=== PATIENT | male | born 1985 | race Caucasian/White ===

== ENCOUNTER 2016-08-02 01:09 | Emergency (ER) | payer MEDICARE, MEDICAID ==
[2016-08-02 02:06] LABS: Hematocrit 43 % (42-52); Hemoglobin 14.3 g/dl (14.0-18.0); Mean Corpuscular HGB Conc 34 g/dl (31-36); Mean Corpuscular Hemoglobin 33 pg (27-31); Mean Corpuscular Volume 97 fL (80-94); Mean Platelet Volume 10 um3 (7.4-10.4); Red Blood Count 4.38 10^6/ul (4.0-5.4); Red Cell Distribution Width 14 % (10.5-15); White Blood Count 7.6 10^3/ul (3.5-10.8)
--- NOTE | 2016-08-02 02:07 | ED ---
Jose Madrigal Michael, scribed for Adal Diaz MD on 08/02/16 at 0153 . Neurological HPI - HPI Summary HPI Summary: 31 y/o male comes to the ED presenting with 2 sz yesterday. The pt reports that he has only had one previous sz before the current episode. He also c/o SHERMAN. 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 The pt has asked for a neurology referral. - History of Current Complaint Chief Complaint: EDGeneral Stated Complaint: SEIZURE Time Seen by Provider: 08/02/16 01:40 Hx Obtained From: Patient, Medical Records Onset/Duration: Sudden Onset, Started days ago Timing: Intermittent Episodes Lasting: Onset Severity: Moderate Current Severity: None Seizure Severity: Moderate Number of Seizures: 2 Pain Intensity: 6 Pain Scale Used: 0-10 Numeric Alleviating: Spontanious Resolution Associated Signs and Symptoms: Positive: Headache, Seizure - Allergy/Home Medications Allergies/Adverse Reactions: Allergies Allergy/AdvReac Type Severity Reaction Status Date / Time Haloperidol [From Haldol] Allergy Severe BODY Verified 08/02/16 01:32 SEIZURES Nickel Allergy Severe Rash Verified 08/02/16 01:32 Sulfa Drugs Allergy Severe SEVERE Verified 08/02/16 01:32 VOMITING, BREATHING PROBLEMS PMH/Surg Hx/FS Hx/Imm Hx Endocrine/Hematology History: Denies: Hx Diabetes, Hx Thyroid Disease Cardiovascular History: Denies: Hx Congestive Heart Failure, Hx Hypertension, Hx Pacemaker/ICD Respiratory History: Denies: Hx Asthma, Hx Chronic Obstructive Pulmonary Disease (COPD) GI History: Reports: Other GI Disorders - present diarrhea with bloody stools Denies: Hx Ulcer Sensory History: Denies: Hx Cataracts, Hx Contacts or Glasses, Hx Eye Injury, Hx Eye Prosthesis, Hx Glaucoma, Hx Legally Blind, Hx Macular Degeneration, Hx Vision Problem, Hx Deafness, Hx Hearing Aid, Hx Hearing Problem, Other Sensory Impairments Opthamlomology History: Denies: Hx Cataracts, Hx Contacts or Glasses, Hx Eye Injury, Hx Eye Prosthesis, Hx Glaucoma, Hx Legally Blind, Hx Macular Degeneration, Hx Vision Problem, Other Sensory Impairments Psychiatric History: Reports: Hx Post Traumatic Stress Disorder, Hx of Violent Episodes Against Others - PER PT WHEN HE DOESNT TAKE HIS MEDS Denies: Hx Anxiety, Hx Attention Deficit Hyperactivity Disorder, Hx Eating Disorder, Hx Depression, Hx Panic Disorder, Hx Inpatient Treatment, Hx Community Mental Health Tx, Hx Schizophrenia, Hx Bipolar Disorder, Hx Suicide Attempt, Hx Substance Abuse, Other Psychiatric Issues/Disorders - Surgical History Surgery Procedure, Year, and Place: HERNIA REPAIR, Hx Anesthesia Reactions: No Infectious Disease History: No Infectious Disease History: Denies: Hx Clostridium Difficile, Hx Hepatitis, Hx Human Immunodeficiency Virus (HIV), Hx of Known/Suspected MRSA, Hx Shingles, Hx Tuberculosis, History Other Infectious Disease, Traveled Outside the [place] in Last 30 Days - Family History Known Family History: Negative: Blood Disorder - Social History Occupation: Unemployed Lives: Alone Alcohol Use: Daily Substance Use Type: Reports: None, Prescribed Substance Use Comment - Amount & Last Used: adderal and valium Smoking Status (MU): Heavy Every Day Tobacco Smoker Type: Smokeless Tobacco Review of Systems Negative: Fever Neurological: Other - sz Positive: Headache All Other Systems Reviewed And Are Negative: Yes Physical Exam Triage Information Reviewed: Yes Vital Signs On Initial Exam: Initial Vitals Temp Pulse Resp BP Pulse Ox 98.8 F 105 16 123/83 99 08/02/16 01:20 08/02/16 01:20 08/02/16 01:20 08/02/16 01:20 08/02/16 01:20 Vital Signs Reviewed: Yes Appearance: Positive: Well-Appearing, No Pain Distress Skin: Positive: Warm Head/Face: Positive: Normal Head/Face Inspection Eyes: Positive: EOMI, KRISTIN ENT: Positive: Hearing grossly normal Neck: Positive: Supple Respiratory/Lung Sounds: Positive: Clear to Auscultation, Breath Sounds Present Cardiovascular: Positive: RRR Abdomen Description: Positive: Nontender, No Organomegaly, Soft Bowel Sounds: Positive: Present Musculoskeletal: Positive: Strength/ROM Intact Neurological: Positive: Sensory/Motor Intact, Alert, Oriented to Person Place, Time, Normal Gait Psychiatric: Positive: Anxious Diagnostics - Vital Signs Vital Signs Temp Pulse Resp BP Pulse Ox 08/02/16 01:20 98.8 F 105 16 123/83 99 - Laboratory Result Diagrams: 08/02/16 01:55 08/02/16 01:55 Lab Statement: Any lab studies that have been ordered have been reviewed, and results considered in the medical decision making process. Re-Evaluation - Re-Evaluation First Eval Comment: results d/wpt, advised pt to f/u with his neurologist Course/Dx - Diagnoses Provider Diagnoses: Seizure Discharge - Discharge Plan Condition: Stable Disposition: HOME Patient Education Materials: Recurrent Seizures in Adults (ED) Referrals: Lisandro Timmons MD [Medical Doctor] - Additional Instructions: You will follow up with Dr. Timmons (Neurology) within the next 2 days. Please return to the ED if your symptoms worsen. The documentation as recorded by the Jose andersen Michael accurately reflects the service I personally performed and the decisions made by , Adal Diaz MD.
[2016-08-02 02:21] LABS: Albumin 4.6 g/dL (3.2-5.2); Calcium 9.7 mg/dL (8.6-10.3); EGFR African American 113.6 (>60); EGFR Non-African American 88.3 (>60); Globulin 2.7 g/dL (2-4); Magnesium 2.4 mg/dL (1.9-2.7); Potassium 4.1 mmol/L (3.5-5.0); Total Bilirubin 1.4 mg/dL (0.2-1.0); Total Protein 7.3 g/dL (6.4-8.9)
[2016-08-02 02:58] VITALS: BP 127/83
== END 2016-08-02 02:57 | disposition home or self-care (01) ==
LOC: ED 01:09
DX: R56.9 Unspecified convulsions (principal); R51 Headache; F17.210 Nicotine dependence, cigarettes, uncomplicated
CPT/HCPCS: 36415; 80053; 83735; 85025; 99282

== ENCOUNTER 2016-09-01 14:37 | Emergency (ER) | payer MEDICARE, MEDICAID ==
[2016-09-01 15:03] VITALS: BP 119/69
--- NOTE | 2016-09-01 15:24 | UC ---
Seizure HPI - HPI Summary HPI Summary: PT WITH H/O TBI AND TONIC-CLONIC SZ THAT HAVE BEEN INCREASING IN FREQUENCY OVER THE PAST 2 MONTHS. IS BEING FOLLOWED BY NEUROLOGY AT [facility] AND HAS A F/U APPT THIS WEDNESDAY (IN 3 DAYS). THIS MORNING HAD A SEIZURE AROUND 7AM. NOT SURE HOW LONG IT LASTED. NO TONGUE BITING OR LOSS OF BOWEL OR BLADDER CONTROL. SAID THIS ONE FELT "DIFFERENT" THAN NORMAL IN THAT IT WAS PAINFUL. CALLED HIS NEUROLOGIST AND WAS TOLD TO GO TO ER BUT HE CAME HERE INSTEAD. CURRENTLY IS FEELING AT BASELINE. - History Of Current Complaint Chief Complaint: UCSzu Stated Complaint: SEIZURES Time Seen by Provider: 09/01/16 15:22 Hx Obtained From: Patient, Family/Medical Laboratory Scientist - MOM Onset/Duration: Sudden Onset, Resolved Severity Of Seizure: Self-Limited Location Of Seizure: All Extremities Character: Positive: Generalized Clonic-Tonic Aggravating Factor(s): Nothing Alleviating Factor(s): Spontaneous Resolution Associated Signs And Symptoms: Remote Trauma - Allergies/Home Medications Allergies/Adverse Reactions: Allergies Allergy/AdvReac Type Severity Reaction Status Date / Time Haloperidol [From Haldol] Allergy Severe BODY Verified 09/01/16 15:03 SEIZURES Nickel Allergy Severe Rash Verified 09/01/16 15:03 Sulfa Drugs Allergy Severe SEVERE Verified 09/01/16 15:03 VOMITING, BREATHING PROBLEMS Home Medications: Home Medications ALPRAZolam TAB* [Xanax TAB*] 0.5 mg PO TID PRN 09/01/16 [History Confirmed 09/01] Diclofenac 1% GEL (NF) [Voltaren 1% GEL (NF)] 1 applic TOPICAL 09/01/16 [History ] Pregabalin CAP(*) [Lyrica CAP(*)] 100 mg PO BID 09/01/16 [History Confirmed ] PMH/Surg Hx/FS Hx/Imm Hx - Additional Past Medical History Additional PMH: TBI Endocrine History Of: Reports: Diabetes, Thyroid Disease Cardiovascular History Of: Denies: Cardiac Disorders, Hypertension, Pacemaker/ICD, Congestive Heart Failure Respiratory History Of: Reports: Asthma Denies: COPD GI/ History Of: Reports: Ulcer Neurological History Of: Reports: Seizures Psychological History Of: Denies: Anxiety, Depression, Bipolar Disorder, Schizophrenia - Surgical History Surgical History: Yes Surgery Procedure, Year, and Place: HERNIA REPAIR,. geoganglian block - Family History Known Family History: Positive: Diabetes Negative: Seizure Disorder, Blood Disorder - Social History Alcohol Use: Rare Substance Use Type: None, Prescribed Substance Use Comment - Amount & Last Used: adderal and valium Smoking Status (MU): Heavy Every Day Tobacco Smoker Type: Cigarettes, Smokeless Tobacco Amount Used/How Often: 2 packs per day Household Exposure Type: Cigarettes - Immunization History Most Recent Influenza Vaccination: pt does not recieve Most Recent Tetanus Shot: 01/06/13 Review of Systems Constitutional: Negative Respiratory: Negative Cardiovascular: Negative Gastrointestinal: Negative Neurological: Other - SEIZURE All Other Systems Reviewed And Are Negative: Yes Physical Exam Triage Information Reviewed: Yes Appearance: Well-Appearing, No Pain Distress, Well-Nourished Vital Signs: Initial Vital Signs Temp 99.3 F 09/01/16 14:52 Pulse 101 09/01/16 14:52 Resp 18 09/01/16 14:52 BP 119/69 09/01/16 14:52 Pulse Ox 99 09/01/16 14:52 Vital Signs Reviewed: Yes Eyes: Positive: Conjunctiva Clear, Other: - PERRL, EOMI ENT: Positive: Hearing grossly normal Neck: Positive: Supple, Nontender, No Lymphadenopathy Respiratory Exam: Normal Cardiovascular Exam: Normal Abdomen Description: Positive: Soft Musculoskeletal: Positive: No Edema Neurological: Positive: Alert, Other: - CN II-XII GROSSLY INTACT BILATERALLY. NEG PRONATOR DRIFT. FINGER TO NOSE INTACT BILATERALLY. HEEL TO TELLEZ INTACT BILATERALLY. RAPID ALTERNATING MVMTS INTACT. 5/5 STRENGTH Psychological: Positive: Normal Response To Family, Age Appropriate Behavior Skin: Negative: rashes Seizure Course/Dx - Differential Dx/Diagnosis Provider Diagnoses: ACUTE SEIZURE - RESOLVED Discharge - Discharge Plan Condition: Stable Disposition: HOME Patient Education Materials: Recurrent Seizures in Adults (ED) Referrals: Collins Wilkinson MD [Primary Care Provider] - If Needed Additional Instructions: KEEP YOUR NEUROLOGY APPT THIS WEEK. STAY WELL HYDRATED AND GET ENOUGH REST. GO TO THE ER WITHOUT FAIL IF YOUR SYMPTOMS RECUR.
== END 2016-09-01 16:03 | disposition home or self-care (01) ==
LOC: UCEAST 14:37
DX: G40.401 Other generalized epilepsy and epileptic syndromes, not intractable, with status epilepticus (principal); Z88.2 Allergy status to sulfonamides; Z88.8 Allergy status to other drugs, medicaments and biological substances; F17.210 Nicotine dependence, cigarettes, uncomplicated
CPT/HCPCS: 99211; G0463

== ENCOUNTER 2018-04-30 17:25 | Emergency (ER) | payer MEDICARE, MEDICAID ==
--- NOTE | 2018-04-30 18:00 | ED ---
Abdominal Pain/Male - HPI Summary HPI Summary: The pt is a 33 y/o male presenting to [facility] c/o intermittent abd pain since 2 days ago worsened today. He notes R inguinal pain, hematuria, intermittent dizziness, and pain with urination. The aching abdominal pain rated 9/10 in severity and radiates to the lower back. He took previously prescribed Oxycodone but ran out of them. The pain is aggravated by twisting, sitting up, bending forward and lifting the legs. Home Medications Medication Instructions Recorded Confirmed Type Amphetamine MIXED SALTS TAB* 30 mg PO BID 01/28/14 09/03/17 History [Adderall TAB*] ALPRAZolam TAB* [Xanax TAB*] 2 mg PO TID PRN 09/01/16 09/03/17 History Oxycodone HCl 10 mg PO TID 09/03/17 09/03/17 History - History of Current Complaint Chief Complaint: EDAbdPain Stated Complaint: BLOOD IN URINE Time Seen by Provider: 04/30/18 17:50 Hx Obtained From: Patient Onset/Duration: Lasting Days - 2 days, Still Present, Worse Since - Today Timing: Intermittent Severity Initially: Severe Severity Currently: Severe Pain Intensity: 9 Pain Scale Used: 0-10 Numeric Location: Diffuse - Lower abdomen Radiates: Yes Radiates to: Back Character: Other: - Aching Aggravating Factor(s): Movement, Other: - twisting, sitting up, bending forward and lifting the legs Alleviating Factor(s): Medications - Oxycodone Associated Signs And Symptoms: Positive: Dizzy, Back Pain, Urinary Symptoms - Allergies/Home Medications Allergies/Adverse Reactions: Allergies Allergy/AdvReac Type Severity Reaction Status Date / Time haloperidol [From Haldol] Allergy body Verified 09/03/17 10:03 seizures nickel Allergy Rash Verified 09/03/17 10:03 Sulfa (Sulfonamide Allergy severe Verified 09/03/17 10:03 Antibiotics) vomiting, breathing problems PMH/Surg Hx/FS Hx/Imm Hx Previously Healthy: No Endocrine/Hematology History: Reports: Hx Thyroid Disease Denies: Hx Diabetes Cardiovascular History: Denies: Hx Congestive Heart Failure, Hx Hypertension, Hx Pacemaker/ICD Respiratory History: Reports: Hx Asthma Denies: Hx Chronic Obstructive Pulmonary Disease (COPD) GI History: Reports: Hx Ulcer, Other GI Disorders - Diarrhea with bloody stools History: Reports: Hx Renal Disease - Hx of kidney failure Sensory History: Denies: Hx Cataracts, Hx Contacts or Glasses, Hx Eye Injury, Hx Eye Prosthesis, Hx Glaucoma, Hx Legally Blind, Hx Macular Degeneration, Hx Vision Problem, Hx Deafness, Hx Hearing Aid, Hx Hearing Problem, Other Sensory Impairments Opthamlomology History: Denies: Hx Cataracts, Hx Contacts or Glasses, Hx Eye Injury, Hx Eye Prosthesis, Hx Glaucoma, Hx Legally Blind, Hx Macular Degeneration, Hx Vision Problem, Other Sensory Impairments Neurological History: Reports: Hx Seizures Psychiatric History: Reports: Hx Post Traumatic Stress Disorder, Hx of Violent Episodes Against Others - Per pt, when he does not take his meds. Denies: Hx Anxiety, Hx Attention Deficit Hyperactivity Disorder, Hx Eating Disorder, Hx Depression, Hx Panic Disorder, Hx Inpatient Treatment, Hx Community Mental Health Tx, Hx Schizophrenia, Hx Bipolar Disorder, Hx Suicide Attempt, Hx Substance Abuse, Other Psychiatric Issues/Disorders - Cancer History Cancer Type, Location and Year: None reported. - Surgical History Surgery Procedure, Year, and Place: Hernia repair. Geoganglian block,. Shrapnel removed from the calf area Hx Anesthesia Reactions: No Infectious Disease History: No Infectious Disease History: Denies: Hx Clostridium Difficile, Hx Hepatitis, Hx Human Immunodeficiency Virus (HIV), Hx of Known/Suspected MRSA, Hx Shingles, Hx Tuberculosis, History Other Infectious Disease, Traveled Outside the [place] in Last 30 Days - Family History Known Family History: Positive: Diabetes Negative: Seizure Disorder, Blood Disorder - Social History Occupation: Employed Full-time Lives: Alone Alcohol Use: None Substance Use Type: Reports: None Substance Use Comment - Amount & Last Used: adderal and valium Hx Tobacco Use: Yes Type: Cigarettes, Smokeless Tobacco Amount Used/How Often: 2 packs per day Review of Systems All Other Systems Reviewed And Are Negative: Yes Physical Exam - Summary Physical Exam Summary: Appearance: The patient is well-nourished in no acute respiratory distress and in no acute pain. Skin: The skin is warm and dry and skin color reflects adequate perfusion. HEENT: The head is normocephalic and atraumatic. The pupils are equal and reactive. The conjunctivae are clear and without drainage. Nares are patent and without drainage. Mouth reveals moist mucous membranes and the throat is without erythema and exudate. The external ars are intact. The ear canals are patent and without drainage. The tympanic membranes are intact. Neck: The neck is supple with full range of motion and non-tender. There are no carotid bruits. There is no neck vein distension. Respiratory: Chest is non-tender. Lungs are clear to auscultation and breath sounds are symmetrical and equal. Cardiovascular: Heart is regular rate and rhythm. There is no murmur or rub auscultated. There is no peripheral edema and pulses are symmetrical and equal. Abdomen: The abdomen is soft and diffusely tender in the RLQ. There are normal bowel sounds heard in all four quadrants and there is no organomegaly palpated. Musculoskeletal: There is no back tenderness noted. Extremities are non-tender with full range of motion. There is good capillary refill. There is no peripheral edema or calf tenderness elicited. Neurological: Patient is alert and oriented to person, place and time. The patient has symmetrical motor strength in all four extremities. Cranial nerves are grossly intact. Deep tendon reflexes are symmetrical and equal in all four extremities. Psychiatric: The patient has an appropriate affect and does not exhibit any anxiety or depression. Triage Information Reviewed: Yes Vital Signs On Initial Exam: Initial Vitals Temp Pulse Resp BP Pulse Ox 98.7 F 88 16 147/81 98 04/30/18 17:35 04/30/18 17:35 04/30/18 17:35 04/30/18 17:35 04/30/18 17:35 Vital Signs Reviewed: Yes Diagnostics - Vital Signs Vital Signs Temp Pulse Resp BP Pulse Ox 04/30/18 17:35 98.7 F 88 16 147/81 98 - Laboratory Result Diagrams: 04/30/18 18:26 04/30/18 18:26 Lab Statement: Any lab studies that have been ordered have been reviewed, and results considered in the medical decision making process. - CT Abd/Pel CT CT Interpretation Completed By: Radiologist - IMPRESSION: 1. Dense bilateral renal papillae which may be seen with a predisposition for stone formation, however, no renal calculi are identified. No ureteral calculi are evident and there is no evidence of obstructive uropathy. 2. Otherwise negative CT abdomen/ pelvis with little change from 11/09/2014. A normal appendix is seen. The ED physician reviewed this radiology report. Re-Evaluation - Re-Evaluation First Eval Re-Evaluation Time: 20:35 Change: Improved Abdominal Pain Fem Course/Dx - Course Course Of Treatment: Mr. Kellogg presented with several complaints. Primarily he seemed to have some right lower quadrant abdominal pain and back pain. He believes he saw some blood in his urine today. He's had the pain for a couple of weeks. A week ago he said Dr. Shi who prescribed oxycodone for him. He also complains of intermittent dizziness, intermittent dysuria and bumps on his penis that he's had for over a year. He states that he has liver and thyroid problems and that sometimes these flareup and cause him to have abdominal problems. He's had a previous upper GI and lower GI and says that he's had ulcers and polyps. His vital signs are stable here and he was nontoxic in appearance. His abdomen was mildly tender in the right lower quadrant. Labs were normal as was noncontrasted CT scan of the abdomen and pelvis. I spoke with Dr. Hernández client liaison for Dr. Shi and recommended pain control and follow- up with Dr. Shi. - Diagnoses Provider Diagnoses: Abdominal pain Discharge - Sign-Out/Discharge Documenting (check all that apply): Patient Departure - DC - Discharge Plan Condition: Stable Disposition: HOME Prescriptions: Oxycodone TAB(NF) [Oxycodone HCl 10 MG] 10 mg PO Q6H PRN #20 tab MDD 4 PRN Reason: Pain Patient Education Materials: Abdominal Pain (ED) Referrals: Melissa Shi MD [Primary Care Provider] - Additional Instructions: Follow up with your PCP in 2-3 days Return to ED for any new or worsening symptoms - Billing Disposition and Condition Condition: STABLE Disposition: Home - Attestation Statements Document Initiated by Sina: Yes Documenting Scribe: Navya Castillo Provider For Whom Sina is Documenting (Include Credential): Dr. Casey Loredo MD Scribe Attestation: Navya Madrigal scribed for Dr. Casey Loredo MD on 04/30/18 at 1782. Scribe Documentation Reviewed: Yes Provider Attestation: The documentation as recorded by the Navya andersen accurately reflects the service I personally performed and the decisions made by me, Dr. Casey Loredo MD
[2018-04-30 18:06] LABS: Urine Appearance Cloudy; Urine Blood Negative (Negative); Urine Color Yellow; Urine Ketones Trace (Negative); Urine Protein Negative (Negative); Urine Specific Gravity 1.018 (1.010-1.030); Urine Urobilinogen Negative (Negative)
[2018-04-30] MEDS ORDERED: HYDROmorphone INJ* 2 MG/ML CARPUJECT SYRINGE IV SLOW PU ONE (18:24)
[2018-04-30] MEDS ORDERED: HYDROmorphone INJ1* 1 MG/ML SYRINGE IV SLOW PU ONE (18:32)
[2018-04-30 18:34] LABS: ABS Basophils 0.1 10^3/ul (0-0.2); ABS Eosinophils 0.2 10^3/ul (0-0.6); ABS Lymphocytes 1.8 10^3/ul (1.0-4.8); ABS Monocytes 0.6 10^3/ul (0-0.8); ABS Neutrophils 3.4 10^3/ul (1.5-7.7); ABS Nucleated RBC 0 10^3/ul; Eosinophil % 3.3 % (0-6); Hematocrit 42 % (42-52); Hemoglobin 14.3 g/dl (14.0-18.0); Lymphocyte % 29.4 % (25-47); Mean Corpuscular HGB Conc 34 g/dl (31-36); Mean Corpuscular Hemoglobin 33 pg (27-31); Mean Corpuscular Volume 97 fL (80-94); Mean Platelet Volume 8.6 fL (7.4-10.4); Nucleated Red Blood Cells % 0; Platelet Count 264 10^3/ul (150-450); Red Blood Count 4.32 10^6/ul (4.00-5.40); Red Cell Distribution Width 13 % (10.5-15)
[2018-04-30 18:50] LABS: EGFR Non-African American 108.1 (>60)
[2018-04-30] MEDS ORDERED: Ketorolac INJ* 30 MG/ML 1 ML VIAL IV PUSH ONE (20:07)
[2018-04-30] MEDS ORDERED: oxyCODONE TAB* 5 MG TAB PO ONE (21:25)
[2018-04-30 21:36] VITALS: BP 145/93
== END 2018-04-30 21:35 | disposition home or self-care (01) ==
LOC: ED 17:25
DX: R10.31 Right lower quadrant pain (principal); E07.9 Disorder of thyroid, unspecified; R31.9 Hematuria, unspecified; F17.210 Nicotine dependence, cigarettes, uncomplicated
CPT/HCPCS: 36415; 74176; 80053; 81003; 83605; 83690; 84443; 85025; 86140; 96374; 96375; 96376; 99283; A9270-GY; J1170; J1885

== ENCOUNTER 2019-04-10 20:31 | Emergency (ER) | payer MEDICARE, MEDICAID ==
--- NOTE | 2019-04-10 21:10 | ED ---
Back Pain - HPI Summary HPI Summary: This patient is a 33 year old male brought in by EMS presenting to [facility] with a chief complaint of chronic back pain. He was working around the house yesterday and today woke up with severe back pain which he rates 8/10. He states he was on the floor all day until his daughter came from school and they called EMS after watching [employer]. The patient sleeps on the floor when he is experiencing flare ups in back pain. He rates his pain 8/10 in severity. He states his pain radiates to his upper abdomen/lower sternum. - History of Current Complaint Chief Complaint: EDBackInjuryPain Stated Complaint: INCREASE IN CHRONIC BACK PAIN PER EMS Time Seen by Provider: 04/10/19 21:03 Hx Obtained From: Patient Onset/Duration: Lasting Hours Onset/Duration: Started Hours Ago Pain Intensity: 8 Pain Scale Used: 0-10 Numeric - Allergies/Home Medications Allergies/Adverse Reactions: Allergies Allergy/AdvReac Type Severity Reaction Status Date / Time haloperidol [From Haldol] Allergy body Verified 03/01/19 11:02 seizures nickel Allergy Rash Verified 03/01/19 11:02 Sulfa (Sulfonamide Allergy severe Verified 03/01/19 11:02 Antibiotics) vomiting, breathing problems PMH/Surg Hx/FS Hx/Imm Hx Endocrine/Hematology History: Reports: Hx Diabetes, Hx Thyroid Disease Cardiovascular History: Denies: Hx Congestive Heart Failure, Hx Hypertension, Hx Pacemaker/ICD Respiratory History: Reports: Hx Asthma Denies: Hx Chronic Obstructive Pulmonary Disease (COPD) GI History: Reports: Hx Ulcer, Other GI Disorders - Diarrhea with bloody stools History: Reports: Hx Renal Disease - Hx of kidney failure Sensory History: Denies: Hx Cataracts, Hx Contacts or Glasses, Hx Eye Injury, Hx Eye Prosthesis, Hx Glaucoma, Hx Legally Blind, Hx Macular Degeneration, Hx Vision Problem, Hx Deafness, Hx Hearing Aid, Hx Hearing Problem, Other Sensory Impairments Opthamlomology History: Denies: Hx Cataracts, Hx Contacts or Glasses, Hx Eye Injury, Hx Eye Prosthesis, Hx Glaucoma, Hx Legally Blind, Hx Macular Degeneration, Hx Vision Problem, Other Sensory Impairments Neurological History: Reports: Hx Seizures Psychiatric History: Reports: Hx Post Traumatic Stress Disorder, Hx of Violent Episodes Against Others - Per pt, when he does not take his meds. Denies: Hx Anxiety, Hx Attention Deficit Hyperactivity Disorder, Hx Eating Disorder, Hx Depression, Hx Panic Disorder, Hx Inpatient Treatment, Hx Community Mental Health Tx, Hx Schizophrenia, Hx Bipolar Disorder, Hx Suicide Attempt, Hx Substance Abuse, Other Psychiatric Issues/Disorders - Cancer History Cancer Type, Location and Year: None reported. - Surgical History Surgery Procedure, Year, and Place: Hernia repair. Geoganglian block,. Shrapnel removed from the calf area Hx Anesthesia Reactions: No - Immunization History Immunizations Up to Date: Yes Infectious Disease History: No Infectious Disease History: Denies: Hx Clostridium Difficile, Hx Hepatitis, Hx Human Immunodeficiency Virus (HIV), Hx of Known/Suspected MRSA, Hx Shingles, Hx Tuberculosis, History Other Infectious Disease, Traveled Outside the [place] in Last 30 Days - Family History Known Family History: Positive: Diabetes Negative: Seizure Disorder, Blood Disorder - Social History Alcohol Use: None Substance Use Type: Reports: None Substance Use Comment - Amount & Last Used: adderal and valium Hx Tobacco Use: Yes Smoking Status (MU): Current Some Day Smoker Type: Cigarettes, Smokeless Tobacco Amount Used/How Often: 1 pack every three days Have You Smoked in the Last Year: Yes Review of Systems Positive: Abdominal Pain Positive: Other - Back pain All Other Systems Reviewed And Are Negative: Yes Physical Exam - Summary Physical Exam Summary: Appearance: Well-appearing, Well-nourished, lying in bed comfortably Skin: Warm, dry, no obvious rash Eyes: sclera anicteric, no conjunctival pallor ENT: mucous membranes moist, pharynx appears normal Neck: Supple, nontender Respiratory: Clear to auscultation, no signs of respiratory distress Cardiovascular: Normal S1, S2. No murmurs. Normal distal pulses in tibial and radial bilaterally. Abdomen: Soft, nontender, normal active bowel sounds present Musculoskeletal: Normal, Strength/ROM Intact Neurological: A&Ox3, awake and alert, mentation is normal, speech is fluent and appropriate Psychiatric: affect is normal, does not appear anxious or depressed Triage Information Reviewed: Yes Vital Signs On Initial Exam: Initial Vitals Temp Pulse Resp BP Pulse Ox 98.5 F 93 18 146/74 100 04/10/19 20:35 04/10/19 20:35 04/10/19 20:35 04/10/19 20:35 04/10/19 20:35 Vital Signs Reviewed: Yes Procedures - Sedation Patient Received Moderate/Deep Sedation with Procedure: No Diagnostics - Vital Signs Vital Signs Temp Pulse Resp BP Pulse Ox 04/10/19 21:00 87 100 04/10/19 20:55 87 146/74 100 04/10/19 20:54 88 100 04/10/19 20:35 98.5 F 93 18 146/74 100 - Laboratory Result Diagrams: 04/10/19 21:41 Lab Statement: Any lab studies that have been ordered have been reviewed, and results considered in the medical decision making process. Back Pain Course/Dx - Course Course Of Treatment: This patient is a 33 year old male brought in by EMS presenting to [facility] with a chief complaint of chronic back pain. The patient will be signed out to Dr. Nuñez at shift change 2200 pending workup. - Diagnoses Provider Diagnoses: Chronic back pain Discharge ED - Sign-Out/Discharge Documenting (check all that apply): Sign-Out Patient Signing out patient TO: Augustina Nuñez - Pend workup shift change 2200 - Discharge Plan Condition: Stable Referrals: Melissa Shi MD [Primary Care Provider] - - Attestation Statements Document Initiated by Scribe: Yes Documenting Scribe: David Guzman Provider For Whom Scribe is Documenting (Include Credential): Casey Akers MD Scribe Attestation: David Madrigal, scribed for Casey Akers MD on 04/10/19 at 2204.
[2019-04-10] MEDS ORDERED: Ketorolac INJ* 30 MG/ML 1 ML VIAL IV PUSH ONE ×2 (21:21→23:24)
[2019-04-10 21:54] LABS: ABS Eosinophils 0.2 10^3/ul (0-0.6); ABS Monocytes 0.6 10^3/ul (0-0.8); ABS Neutrophils 2.6 10^3/ul (1.5-7.7); Eosinophil % 4.2 %; Hematocrit 39 % (42-52); Lymphocyte % 36.6 %; Mean Corpuscular HGB Conc 34 g/dL (31-36); Mean Corpuscular Hemoglobin 33 pg (27-31); Mean Corpuscular Volume 98 fL (80-94); Nucleated Red Blood Cells % 0.1; Platelet Count 230 10^3/uL (150-450); Red Blood Count 3.94 10^6 /uL (4.18-5.48); Red Cell Distribution Width 13 % (10-15); White Blood Count 5.4 10^3/uL (3.5-10.8)
[2019-04-10 21:57] LABS: Urine Appearance Cloudy; Urine Bilirubin Negative (Negative); Urine Blood Negative (Negative); Urine Color Yellow; Urine Glucose Negative (Negative); Urine Ketones Negative (Negative); Urine Nitrite Negative (Negative); Urine Protein Negative (Negative); Urine Urobilinogen Negative (Negative)
[2019-04-10 22:12] LABS: ALT 18 U/L (7-52); AST 20 U/L (13-39); Albumin 3.8 g/dL (3.2-5.2); Albumin/Globulin Ratio 1.7 (1-3); Alkaline Phosphatase 53 U/L (34-104); Anion Gap 3 mmol/L (2-11); Blood Urea Nitrogen 9 mg/dL (6-24); C Reactive Protein < 1.00 mg/L (<8.01); CO2 Carbon Dioxide 30 mmol/L (22-32); Calcium 9.1 mg/dL (8.6-10.3); Chloride 108 mmol/L (101-111); Creatine Kinase 199 U/L (10-223); EGFR African American 132.6 (>60); EGFR Non-African American 109.6 (>60); Globulin 2.2 g/dL (2-4); Glucose 100 mg/dL (70-100); Potassium 4.1 mmol/L (3.5-5.0); Sodium 141 mmol/L (135-145)
--- NOTE | 2019-04-10 22:32 | ED ---
Progress - Progress Note Progress Note: This pt is a signout from Dr. Akers to Dr. Nuñez at 2200 04/10/19 shift change pending workup. Thoracic Spine CT IMPRESSION: Normal noncontrast thoracic spine CT. Pt will be discharged. Course/Dx - Course Course Of Treatment: This pt is a signout from Dr. Akers to Dr. Nuñez at 2200 04/10/19 shift change pending workup. Thoracic Spine CT IMPRESSION: Normal noncontrast thoracic spine CT. Pt will be discharged. - Diagnoses Provider Diagnoses: Thoracic back pain Discharge ED - Sign-Out/Discharge Documenting (check all that apply): Patient Departure - discharge, Receiving Sign-Out Receiving patient FROM: Casey Akers - This pt is a signout from Dr. Akers to Dr. Nuñez at 2200 04/10/19 shift change pending workup. - Discharge Plan Condition: Stable Disposition: HOME Patient Education Materials: Back Pain (ED) Referrals: Melissa Shi MD [Primary Care Provider] - 3 Days Additional Instructions: Follow up with your primary care provider within 3 days. Return to the ED for any new or worsening symptoms. - Billing Disposition and Condition Condition: STABLE Disposition: Home - Attestation Statements Document Initiated by Gardeniaibchi: Yes Documenting Scribe: Gelacio Obregon Provider For Whom Sina is Documenting (Include Credential): Dr. Augustina Nuñez MD Scribe Attestation: Gelacio Madrigal scribed for Dr. Augustina Nuñez MD on 04/11/19 at 0508. Scribe Documentation Reviewed: Yes Provider Attestation: The documentation as recorded by the Gelacio andersen accurately reflects the service I personally performed and the decisions made by me, Dr. Augustina Nuñez MD Status of Scribe Document: Viewed
[2019-04-11 00:05] LABS: Erythrocyte Sed Rate 9 mm/Hr (0-14)
[2019-04-11 03:05] VITALS: BP 131/74
== END 2019-04-11 02:30 | disposition home or self-care (01) ==
LOC: ED 20:31
DX: M54.6 Pain in thoracic spine (principal); E11.22 Type 2 diabetes mellitus with diabetic chronic kidney disease; Z88.2 Allergy status to sulfonamides; Z88.8 Allergy status to other drugs, medicaments and biological substances; Z72.0 Tobacco use
CPT/HCPCS: 36415; 72128; 80053; 81003; 82550; 85025; 85652; 86140; 96374; 96376; 99283; J1885

== ENCOUNTER 2019-08-08 10:59 | Day surgery (SDC) | payer MEDICARE, MEDICAID ==
--- NOTE | 2019-08-03 10:28 | HP ---
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 HISTORY OF PRESENT ILLNESS: This is a 34-year-old male who has had a couple of bad injuries to his back and cervical spine when he was in his teens. He has also had a head injury in the past. He has been dealing with numbness in his hands for quite some time and the symptoms have gotten worse over the past few months, especially on the right side. He has tingling and numbness in his fingers. He had an EMG nerve conduction study which was inconclusive, but clinically he is presenting with carpal tunnel syndrome on the right and ulnar nerve compression at the right elbow. He is followed by pain management. He takes Tylenol with Codeine on a regular basis and also buprenorphine, which he uses in a patch once weekly. He has consented to proceed with surgical intervention for his carpal tunnel and his ulnar nerve compression. He has failed conservative measures including an injection into the carpal tunnel and bracing. PAST MEDICAL HISTORY: 1. PTSD. 2. Traumatic brain injury. 3. Back injury, age 18, when he fell off a bridge. 4. History of a seizure disorder after he was electrocuted about 4 or 5 years ago at home. He has had no seizures since then. 5. Anxiety/depression. 6. Hypertension. 7. Neck pain/back pain, chronic. PAST SURGICAL HISTORY: Hernia repair. CURRENT MEDICATIONS: 1. Adderall 20 mg twice daily. 2. Alprazolam 2 mg 3 times a day. 3. Buprenorphine 15 mcg/hr applied 1 patch once a week. 4. CBD cream as needed. 5. Meloxicam 7.5 mg once or twice daily p.r.n. pain. 6. Prazosin HCl 1 mg 1 to 2 q.h.s. 7. Tylenol with Codeine 300/30 one tab q.4-6 hours p.r.n. pain. 8. Voltaren 1% applied to affected area 3 to 4 times a day as needed. 9. Lyrica 75 mg t.i.d. 10. Ketorolac injection 150 mg administered by the [facility]. ALLERGIES: HALDOL causes seizures; nickel causes hives; and SULFA causes nausea , vomiting, and hives. FAMILY MEDICAL HISTORY: Diabetes, heart disease, hypertension, stroke, cancer, rheumatoid arthritis. SOCIAL HISTORY: The patient is employed. 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 He is a former smoker of tobacco, but he currently vapes. He has been doing this for the past 3 years. He denies recreational drug use. He does not drink alcohol. REVIEW OF SYSTEMS: Positive for hearing changes in his left ear, constipation, chronic back and neck pain, peripheral neuropathy, fatigue, depression, anxiety. Otherwise negative for cephalic, cardiovascular, respiratory, gastrointestinal, genitourinary, other musculoskeletal, skin, neurologic, endocrine, and hematologic symptoms. PHYSICAL EXAMINATION GENERAL: A well-developed, well-nourished 34-year-old male, in no acute distress. VITAL SIGNS: Height 5 feet 6 inches, weight 176 pounds. Pulse rate 98, blood pressure 128/80. HEENT: Normocephalic, atraumatic. Pupils are equal, round, and reactive to light and accommodation. Extraocular movements are intact. Throat is clear. NECK: Supple. No palpable lymph nodes. PULMONARY: Lungs are clear to auscultation bilaterally. No wheezes, rales, or rhonchi. CARDIOVASCULAR: Regular rate and rhythm. S1, S2. No murmurs, rubs, or gallops. No edema. ABDOMEN: Positive bowel sounds. Soft, nontender. MUSCULOSKELETAL: On exam of his right upper extremity, he does not have any muscle wasting. He has good strength with finger abduction and thumb abduction. He has good motion in his fingers. He has a positive Tinel's sign at the median nerve and at the ulnar nerve on the right. He reports sensation to be intact to light touch throughout his hand. NEUROLOGICAL: Alert and oriented x3. Cranial nerves II through XII are intact. IMPRESSION: Right carpal tunnel syndrome and ulnar nerve compression at the elbow. PLAN: The patient is scheduled to undergo a right wrist carpal tunnel release and an ulnar nerve decompression at the right elbow with Dr. Daniels on . He will return to the office 10 days postop for followup and suture removal. The [facility] will be contacted and likely the patient will be prescribed Formoso for postoperative pain management. PATRICE WHITE [id number]/[facility] #: [id number] [facility] HOSPITALBrenda
[~2019-08-08 10:59] MED LIST: Buffered Lidocaine 1% SYRIN* 1 ML/SYRINGE INTRADERM ONE; Dexamethasone IV* 4 MG/ML 1 ML (4 MG) IV SLOW PU ONE; Dexamethasone IV* 4 MG/ML 1 ML (4 MG) ONE; Famotidine IV* 10 MG/ML 2 ML (20 mg) IV ONE; Famotidine IV* 10 MG/ML 2 ML (20 mg) ONE; Lactated Ringers 1000 ML Bag* 1,000 ML IV SCH
[2019-08-08] MEDS ORDERED: ceFAZolin 2 GM in NS PREMIX(*) 2 GM/100 ML BAG IVPB ONE (11:11)
[2019-08-08] MEDS ORDERED: fentaNYL* 50 MCG/ML 2 ML VIAL (100 MCG VIAL) ONE (13:10)
[2019-08-08] MEDS ORDERED: Propofol* 10 MG/ML 20 ML BTL ONE (13:10)
[2019-08-08] MEDS ORDERED: Lidocaine 2% PF * 5 ML VIAL ONE (13:10)
[2019-08-08] MEDS ORDERED: Midazolam* 1 MG/ML 5 ML VIAL (5 MG) ONE (13:10)
[2019-08-08] MEDS ORDERED: fentaNYL* 50 MCG/ML 2 ML VIAL (100 MCG VIAL) IV PRN (13:42)
[2019-08-08] MEDS ORDERED: Naloxone* 0.4 MG/ML 1 ML VIAL IV PRN (13:42)
[2019-08-08] MEDS ORDERED: oxyCODONE/Acetamin 5/325 MG* TAB PO PRN (13:42)
[2019-08-08] MEDS ORDERED: HYDROcodone/ACETAMIN 5-325 MG* 1 TAB PO PRN (13:42)
[2019-08-08] MEDS ORDERED: DiMENhydriNATE IV* 50 MG/ML VIAL IV PUSH PRN (13:42)
[2019-08-08] MEDS ORDERED: Bupivacaine 0.5% SDV PF* 30ML VIAL ONE (13:43)
[2019-08-08] MEDS ORDERED: Ketorolac INJ* 30 MG/ML 1 ML VIAL ONE (14:00)
[2019-08-08] MEDS ORDERED: Ondansetron INJ* 2 MG/ML VIAL ONE (14:14)
[2019-08-08] MEDS ORDERED: HYDROcodone/ACETAMIN 5-325 MG* 1 TAB ONE (15:35)
[2019-08-08 16:08] VITALS: BP 119/66
--- NOTE | 2019-08-09 03:00 | OP ---
DATE OF OPERATION: 08/08/19 - [facility] DATE OF : 89 SURGEON: Feli Daniels MD SAP BPC DEVELOPER: PATRICE Flores ANESTHESIA: General. PRE-OP DIAGNOSES: 1. Right carpal tunnel syndrome. 2. Ulnar nerve compression at the right elbow. POST-OP DIAGNOSES: 1. Right carpal tunnel syndrome. 2. Ulnar nerve compression at the right elbow. OPERATIVE PROCEDURE: Right carpal tunnel release and ulnar nerve decompression at the elbow. INDICATIONS: Rodrigo is a 34-year-old male who complains of numbness and tingling in his right hand. He has carpal tunnel syndrome and ulnar nerve compression at the right elbow by exam. He presents for ulnar nerve decompression of the right elbow and right carpal tunnel release. ESTIMATED BLOOD LOSS: Zero. TOURNIQUET TIME: About 30 minutes. DESCRIPTION OF PROCEDURE: The patient was brought to the operating room, was given a general anesthetic and placed in the supine position on the operating table with a tourniquet around his right upper arm. The skin of his right upper extremity was prepped and draped in the usual sterile fashion. The upper extremity was exsanguinated and the tourniquet elevated to 250 mmHg. A longitudinal incision was made in the palm in line with the ring finger and we dissected through the subcutaneous tissue down to the transverse carpal ligament. The ligament was divided sharply with a knife and then more proximally with the scissors. The nerve was dissected free from the surrounding tissue and there was an area of moderate compression at the mid portion of the ligament. The wound was irrigated and the skin edges reapproximated with 4-0 nylon suture. Next, a curvilinear incision was made centered between the medial epicondyle and the tip of the olecranon process. We dissected bluntly through the subcutaneous tissue down to the ulnar nerve at the cubital tunnel. There was a branch of the medial antebrachial cutaneous nerve proximal to the elbow and this was preserved. The ligament over the cubital tunnel was incised and the ulnar nerve was then traced down into the fascia of the FCU muscle. The superficial and deep portions of the fascia were divided and then the nerve was dissected free from the surrounding tissue. Also , then it was dissected out proximally for several centimeters proximal to the elbow. The wound was copiously irrigated with saline. The medial intermuscular septum was divided and then the subcutaneous tissue was closed with 3-0 Vicryl suture. The skin was closed with 4-0 nylon suture. The wounds were dressed with Xeroform, 4x4, Webril, and an Hiren wrap. The patient tolerated the procedure well and was brought to the recovery room in good condition. [id number]/[facility] #: [id number] [facility]
== END 2019-08-08 16:00 | disposition home or self-care (01) ==
LOC: OREAST 10:59
PROVIDERS: ATTEND Orthopaedic Surgery
DX: G56.01 Carpal tunnel syndrome, right upper limb (principal); G56.21 Lesion of ulnar nerve, right upper limb; F43.10 Post-traumatic stress disorder, unspecified; Z87.820 Personal history of traumatic brain injury; F41.8 Other specified anxiety disorders; I10 Essential (primary) hypertension; M54.2 Cervicalgia; M54.9 Dorsalgia, unspecified; Z87.891 Personal history of nicotine dependence
CPT/HCPCS: J0690; J1100; J1885; J2250; J2405; J2704; J3010; J3490

== ENCOUNTER 2023-10-01 09:31 | Observation (INO) ==
[2023-10-01] MEDS: D5NS 0.9% 1000 ml BAG 1,000 ML IV ONE (09:43)
[2023-10-01 10:10] LABS: ABS Eosinophils 0.1 10^3/uL (0.0-0.5); ABS Lymphocytes 1.2 10^3/uL (1.0-4.8); ABS Monocytes 0.8 10^3/uL (0.0-1.1); ABS Neutrophils 7.1 10^3/uL (1.5-7.6); Eosinophil % 1.1 %; Hematocrit 43.7 % (38-53); Hemoglobin 14.8 g/dL (13.2-16.3); Lymphocyte % 13.2 %; Mean Corpuscular Hemoglobin 32.5 pg (27-33); Mean Corpuscular Hgb Conc 33.8 g/dL (31-36); Mean Corpuscular Volume 96.3 fL (80-97); Mean Platelet Volume 10.3 fL (7.5-11.2); Platelet Count 224 10^3/uL (150-450); Red Blood Count 4.54 10^6/uL (4.06-5.63); Red Cell Distribution Width 13.8 % (12-17); White Blood Count 9.2 10^3/uL (3.6-10.2)
[2023-10-01 10:40] LABS: High Sens Troponin Baseline 7 pg/mL (<20)
[2023-10-01 10:45] LABS: Urine Appearance Clear; Urine Bilirubin Negative (Negative); Urine Blood Negative (Negative); Urine Color Yellow; Urine Glucose Trace (Negative); Urine Ketones Negative (Negative); Urine Nitrite Negative (Negative); Urine Protein Trace (Negative); Urine Specific Gravity 1.018 (1.002-1.030); Urine Urobilinogen Negative (Negative); Urine pH 5.5 (5.0-8.0)
[2023-10-01 10:49] LABS: Urine Benzodiazepine Screen Presumptive Positive (None Detect); Urine Cannabinoids Screen None Detected (None Detect); Urine Opiates Screen Presumptive Positive (None Detect)
[2023-10-01 11:06] LABS: ALT 136 U/L (7-52); AST 187 U/L (13-39); Albumin 4.7 g/dL (3.2-5.2); Albumin/Globulin Ratio 1.7 (1-3); Alkaline Phosphatase 67 U/L (35-149); Anion Gap 9 mmol/L (2-16); Blood Urea Nitrogen 25 mg/dL (6-24); C Reactive Protein 34.44 mg/L (<8.01); CO2 Carbon Dioxide 26 mmol/L (22-32); Calcium 9.7 mg/dL (8.6-10.3); Chloride 101 mmol/L (101-111); Creatinine, Serum 1.82 mg/dL (0.67-1.17); Globulin 2.8 g/dL (2-4); Glucose 167 mg/dL (70-100); Lipase 17 U/L (11.0-82.0); Magnesium 3.1 mg/dL (1.9-2.7); Phosphorus 5.2 mg/dL (2.5-5.0); Potassium 4.7 mmol/L (3.5-5.0); Sodium 136 mmol/L (135-145); Total Protein 7.5 g/dL (6.4-8.9); eGFR CKD-EPI 48.8 (>60)
[2023-10-01] MEDS ORDERED: Naloxone 0.4 mg VIAL 0.4 mg/ml 1 ml VIAL ONE ×2 (11:06→11:27)
[2023-10-01] MEDS: Naloxone 0.4 mg VIAL 0.4 mg/ml 1 ml VIAL IV PUSH ONE ×2 (11:15→11:30)
[2023-10-01 11:35] LABS: Venous Bicarbonate HCO3 21.3 mmol/L (24-28)
[2023-10-01 11:48] LABS: High Sensitivity Troponin 1 Hr 8 pg/mL (<20)
[2023-10-01] MEDS: Naloxone 0.4 mg VIAL 2 MG in NS 0.9% 250 ml 245 ML IV SCH (12:00)
[2023-10-01] MEDS: Flumazenil 0.5 mg/5 ml 0.1 MG/ML 5 ml VIAL IV ONE (12:21)
[2023-10-01 12:25] LABS: PCO2 Arterial 39 mmHg (35-45); PO2 Arterial 85 mmHg (80-100)
[2023-10-01] MEDS ORDERED: Rocuronium 50 mg VIAL 10 mg/ml 5 ml VIAL (50 mg) ONE (12:28)
[2023-10-01] MEDS ORDERED: Succinylcholine 200 mg VIAL 20 mg/ml 10 ml VIAL (200 mg) ONE (12:29)
[2023-10-01] MEDS ORDERED: Dextrose 50% Syringe 50 ml 25 GM/50 ML SYRINGE IV PUSH PRN (16:47)
[2023-10-01 17:42] LABS: TSH Ultra Thyroid Stim Horm 0.59 mcIU/mL (0.34-5.60)
[2023-10-01 17:55] LABS: Insulin 78.6 mcIU/mL (2.0-16.0)
[2023-10-01 18:01] LABS: Creatine Kinase 8380 U/L (10-223)
[2023-10-01] MEDS: Sodium Chloride CONC. 4 MEQ/ML 77 MEQ in D10W 1000 ml BAG 1,000 ML IV SCH (19:08)
[2023-10-01] MEDS: Iodixanol (CONTRAST) 320 MG/ML 100 ML SDV IV ONE (19:25)
[2023-10-01] MEDS: Lactated Ringers 1000 ml BAG 1,000 ML IV SCH (20:22)
[2023-10-02 06:54] LABS: ABS Basophils 0.1 10^3/uL (0.0-0.1); ABS Eosinophils 0.2 10^3/uL (0.0-0.5); ABS Lymphocytes 1.8 10^3/uL (1.0-4.8); ABS Monocytes 0.8 10^3/uL (0.0-1.1); ABS Neutrophils 3.7 10^3/uL (1.5-7.6); Eosinophil % 3.4 %; Hematocrit 32.9 % (38-53); Hemoglobin 10.9 g/dL (13.2-16.3); Lymphocyte % 27.5 %; Mean Corpuscular Hemoglobin 32.8 pg (27-33); Mean Corpuscular Hgb Conc 33.2 g/dL (31-36); Mean Corpuscular Volume 98.6 fL (80-97); Mean Platelet Volume 10.7 fL (7.5-11.2); Nucleated Red Blood Cells % 0.1 %/100WBC (0.0-0.8); Platelet Count 147 10^3/uL (150-450); Red Blood Count 3.33 10^6/uL (4.06-5.63); White Blood Count 6.6 10^3/uL (3.6-10.2)
[2023-10-02 07:36] LABS: Calcium 7.9 mg/dL (8.6-10.3); Creatinine, Serum 0.81 mg/dL (0.67-1.17); Potassium 3.8 mmol/L (3.5-5.0); eGFR CKD-EPI 117.2 (>60)
[2023-10-02 07:43] LABS: Albumin 3.2 g/dL (3.2-5.2); Albumin/Globulin Ratio 1.7 (1-3); Globulin 1.9 g/dL (2-4); HDL Cholesterol 31.4 mg/dL; Magnesium 1.7 mg/dL (1.9-2.7); Total Bilirubin 0.8 mg/dL (0.2-1.0); Total Protein 5.1 g/dL (6.4-8.9)
[2023-10-02] MEDS: Morphine ER 15 mg TAB ** extended release PO SCH (08:22)
[2023-10-02] MEDS: Nicotine PATCH 21 MG/24 HR PATCH TRANSDERM SCH (09:50)
[2023-10-02 15:02] LABS: Alcohol, S < 13 mg/dL (<13)
[2023-10-02] MEDS: Magnesium Sulfate 2 gm BAG 2 GM/50 ML BAG IVPB ONE (15:17)
[2023-10-02] MEDS: Lactated Ringers 1000 ml BAG 1,000 ML IV SCH (15:17)
[2023-10-03 04:30] LABS: ABS Basophils 0.1 10^3/uL (0.0-0.1); ABS Eosinophils 0.3 10^3/uL (0.0-0.5); ABS Lymphocytes 2.2 10^3/uL (1.0-4.8); ABS Monocytes 0.7 10^3/uL (0.0-1.1); ABS Neutrophils 3.2 10^3/uL (1.5-7.6); ABS Nucleated RBC 0.01 10^3/ul; Eosinophil % 4.2 %; Hematocrit 32.4 % (38-53); Hemoglobin 11.1 g/dL (13.2-16.3); Lymphocyte % 34.3 %; Mean Corpuscular Hemoglobin 32.8 pg (27-33); Mean Corpuscular Hgb Conc 34.2 g/dL (31-36); Mean Corpuscular Volume 95.8 fL (80-97); Mean Platelet Volume 10.2 fL (7.5-11.2); Nucleated Red Blood Cells % 0.1 %/100WBC (0.0-0.8); Platelet Count 164 10^3/uL (150-450); Red Blood Count 3.38 10^6/uL (4.06-5.63); Red Cell Distribution Width 13.5 % (12-17); White Blood Count 6.4 10^3/uL (3.6-10.2)
[2023-10-03 04:54] LABS: Creatinine, Serum 0.73 mg/dL (0.67-1.17); Magnesium 1.9 mg/dL (1.9-2.7); Potassium 3.9 mmol/L (3.5-5.0); eGFR CKD-EPI 120.9 (>60)
[2023-10-03 08:19] LABS: Phosphorus 3.4 mg/dL (2.5-5.0)
[2023-10-03] MEDS: Potassium Chlor 20 meq TAB.ER PO ONE (08:44)
[2023-10-03] MEDS: Magnesium Sulfate 2 gm BAG 2 GM/50 ML BAG IVPB ONE (08:46)
[2023-10-03 10:19] VITALS: BP 164/96
== END 2023-10-03 12:56 | disposition home or self-care (01) ==
LOC: ED 09:31 → INTOOBSV 11:57 → EDHOLD 11:57 → ICU 14:47
PROVIDERS: ADMIT Internal Medicine Critical Care Medicine; ATTEND Internal Medicine Critical Care Medicine